=== PATIENT | female | born 1950 | race Caucasian/White ===

== ENCOUNTER 2016-10-12 10:42 | Outpatient (CLI) | payer BC | END 2016-10-12 10:43 | disposition home or self-care (01) | DX: Z00.00 Encounter for general adult medical examination without abnormal findings (principal); E55.9 Vitamin D deficiency, unspecified; E78.5 Hyperlipidemia, unspecified ==

== ENCOUNTER 2017-05-29 14:31 | Outpatient (CLI) | payer BC ==
[2017-05-29 18:49] LABS: ALBUMIN 4.2 g/dL (3.2-5.5); ALBUMIN/GLOBULIN RATIO 1.2 (1.0-2.2); BILIRUBIN,TOTAL 0.9 mg/dL (0.2-1.0); CALCIUM 9.4 mg/dL (8.5-10.3); TOTAL PROTEIN 7.6 g/dL (6.7-8.2)
== END 2017-05-29 14:32 | disposition home or self-care (01) ==
LOC: LAB.F 14:31
PROVIDERS: ATTEND Nurse Practitioner Family
DX: Z79.899 Other long term (current) drug therapy (principal)
CPT/HCPCS: 36415; 80053

== ENCOUNTER 2018-03-20 12:08 | Outpatient (CLI) | payer BC ==
--- NOTE | 2018-03-21 10:22 | XRAY Report ---
Reason: INCREASING PAIN Procedure Date: 03/20/2018 Accession Number: [id number] / [id number] Procedure: XR - Hip w/Pelvis 2-3V RT CPT Code: FULL RESULT: EXAM: RIGHT HIP AND PELVIS RADIOGRAPHY EXAM DATE: 03/20/2018 12:25 PM. HISTORY: INCREASING PAIN. COMPARISONS: None. TECHNIQUE: 1 view of the pelvis and 1 view of the hip. FINDINGS: Bones: Normal. No fracture or bone lesion. Joints: The bilateral hip, pubis symphysis, and sacroiliac joints are preserved. Prominent degenerative changes in lower lumbar spine. Soft Tissues: Unremarkable. IMPRESSION: Negative hips. Prominent lower lumbar degenerative changes. RADIA
== END 2018-03-20 12:09 | disposition home or self-care (01) ==
LOC: DI 12:08
PROVIDERS: ATTEND Nurse Practitioner Family
DX: M25.551 Pain in right hip (principal)

== ENCOUNTER 2018-04-03 14:15 | Outpatient (CLI) | payer BC ==
[2018-04-03 18:07] LABS: T4 (THYROXINE) 8.2 ug/dL (6.09-12.23)
[2018-04-03 18:12] LABS: THYROID STIMULATING HORMONE 2.14 uIU/mL (0.34-5.60)
[2018-04-03 18:14] LABS: FREE T4 (FREE THYROXINE) 0.85 ng/dL (0.58-1.64)
== END 2018-04-03 14:16 | disposition home or self-care (01) ==
LOC: LAB.F 14:15
PROVIDERS: ATTEND Nurse Practitioner Family
DX: N95.1 Menopausal and female climacteric states (principal); K59.00 Constipation, unspecified
CPT/HCPCS: 36415; 82306; 83090; 84436; 84439; 84443; 84481; 86141

== ENCOUNTER 2019-01-01 11:04 | Outpatient (CLI) | payer BC ==
[2019-01-01 17:14] LABS: BASOPHILS # (AUTO) 0.1 10^3/uL (0.0-0.1); BASOPHILS % (AUTO) 0.7 %; EOSINOPHILS # (AUTO) 0.2 10^3/uL (0.0-0.7); EOSINOPHILS % (AUTO) 2.3 %; HGB - HEMOGLOBIN 13.7 g/dL (12.0-16.0); LYMPHOCYTES # (AUTO) 2.3 10^3/uL (1.5-3.5); LYMPHOCYTES % (AUTO) 27.7 %; MEAN CORPUSCULAR HEMOGLOBIN 28.5 pg (27.0-31.0); MEAN CORPUSCULAR HGB CONC 31.4 g/dL (32.0-36.0); MEAN CORPUSCULAR VOLUME 90.6 fL (81.0-99.0); MEAN PLATELET VOLUME 10.3 fL (7.9-10.8); MONOCYTES # (AUTO) 0.6 10^3/uL (0.0-1.0); MONOCYTES % (AUTO) 6.7 %; NEUTROPHILS # (AUTO) 5.2 10^3/uL (1.5-6.6); NEUTROPHILS % (AUTO) 62.2 %; PLT - PLATELET COUNT 273 10^3/uL (130-450); RED BLOOD COUNT 4.81 10^6/uL (4.20-5.40); WHITE BLOOD COUNT 8.4 x10^3/uL (4.8-10.8)
[2019-01-01 17:28] LABS: ALBUMIN 4.3 g/dL (3.2-5.5); ALBUMIN/GLOBULIN RATIO 1.4 (1.0-2.2); ALKALINE PHOSPHATASE 61 IU/L (42-121); ALT ALANINE AMINOTRANSFERASE 16 IU/L (10-60); AST ASPARTATE AMINOTRANSFERASE 17 IU/L (10-42); BILIRUBIN,TOTAL 0.8 mg/dL (0.2-1.0); BUN - BLOOD UREA NITROGEN 18 mg/dL (6-20); CALCIUM 9.6 mg/dL (8.5-10.3); CARBON DIOXIDE - CO2 23 mmol/L (21-32); CHLORIDE 104 mmol/L (101-111); CHOL/HDL RATIO 3.3 (<4.4); CHOLESTEROL 169 mg/dL; GFR - MDRD 55 (>89); GLUCOSE 89 mg/dL (70-100); HDL CHOLESTEROL 51 mg/dL; LDL CHOLESTEROL,CALCULATED 85 mg/dL; LDL/HDL RATIO 1.7 (<4.4); SODIUM 137 mmol/L (135-145); TOTAL PROTEIN 7.4 g/dL (6.7-8.2); VLDL CHOLESTEROL 33 mg/dL
== END 2019-01-01 11:05 | disposition home or self-care (01) ==
LOC: LAB.S 11:04
PROVIDERS: ATTEND Nurse Practitioner Family
DX: Z00.00 Encounter for general adult medical examination without abnormal findings (principal); E55.9 Vitamin D deficiency, unspecified; E78.5 Hyperlipidemia, unspecified
CPT/HCPCS: 36415; 80053; 80061; 82306; 83721; 85025

== ENCOUNTER 2019-02-19 14:11 | Outpatient (CLI) | payer BC ==
[2019-02-19 17:48] LABS: ALBUMIN/GLOBULIN RATIO 1.3 (1.0-2.2); BILIRUBIN,TOTAL 0.7 mg/dL (0.2-1.0); CALCIUM 9.3 mg/dL (8.5-10.3); TOTAL PROTEIN 7.2 g/dL (6.7-8.2)
== END 2019-02-19 14:12 | disposition home or self-care (01) ==
LOC: LAB.S 14:11
PROVIDERS: ATTEND Nurse Practitioner Family
DX: Z79.899 Other long term (current) drug therapy (principal)
CPT/HCPCS: 36415; 80053

== ENCOUNTER 2019-06-05 12:14 | Outpatient (CLI) | payer BC ==
[2019-06-05 12:47] LABS: BASOPHILS # (AUTO) 0.1 10^3/uL (0.0-0.1); BASOPHILS % (AUTO) 0.6 %; EOSINOPHILS # (AUTO) 0.2 10^3/uL (0.0-0.7); EOSINOPHILS % (AUTO) 1.8 %; LYMPHOCYTES # (AUTO) 2.1 10^3/uL (1.5-3.5); LYMPHOCYTES % (AUTO) 25.7 %; MEAN CORPUSCULAR HEMOGLOBIN 27.9 pg (27.0-31.0); MEAN CORPUSCULAR HGB CONC 31.7 g/dL (32.0-36.0); MEAN PLATELET VOLUME 9.4 fL (7.9-10.8); MONOCYTES # (AUTO) 0.5 10^3/uL (0.0-1.0); MONOCYTES % (AUTO) 6.1 %; NEUTROPHILS # (AUTO) 5.5 10^3/uL (1.5-6.6); NEUTROPHILS % (AUTO) 65.6 %; PLT - PLATELET COUNT 258 10^3/uL (130-450); RED BLOOD COUNT 5.02 10^6/uL (4.20-5.40); RED CELL DISTRIBUTION WIDTH 13.5 % (12.0-15.0); WHITE BLOOD COUNT 8.3 x10^3/uL (4.8-10.8)
[2019-06-05 13:08] LABS: ALBUMIN 4.1 g/dL (3.2-5.5); ALBUMIN/GLOBULIN RATIO 1.2 (1.0-2.2); BILIRUBIN,TOTAL 0.8 mg/dL (0.2-1.0); CALCIUM 9.6 mg/dL (8.5-10.3); TOTAL PROTEIN 7.5 g/dL (6.7-8.2)
== END 2019-06-05 12:15 | disposition home or self-care (01) ==
LOC: LAB 12:14
PROVIDERS: ATTEND Nurse Practitioner Family
DX: Z00.00 Encounter for general adult medical examination without abnormal findings (principal); Z79.899 Other long term (current) drug therapy; E55.9 Vitamin D deficiency, unspecified; E78.5 Hyperlipidemia, unspecified
CPT/HCPCS: 36415; 80053; 85025

== ENCOUNTER 2019-06-05 12:49 | Outpatient (CLI) | payer BC ==
--- NOTE | 2019-06-06 00:51 | XRAY Report ---
Reason: SHORTNESS OF BREATH Procedure Date: 06/05/2019 Accession Number: [id number] / [id number] Procedure: XR - Chest 2 View X-Ray CPT Code: 59813 Final Report FULL RESULT: EXAM: CHEST RADIOGRAPHY EXAM DATE: 06/05/2019 12:57 PM. CLINICAL HISTORY: SHORTNESS OF BREATH. COMPARISON: XR CHEST PA AND LAT 06/25/2012 7:27 AM. TECHNIQUE: 2 views. FINDINGS: Lungs/Pleura: No infiltrates. No pleural effusions or pneumothorax. Mediastinum: Heart size within normal limits. No pulmonary vascular congestion. Osseous structures: No significant focal osseous lesions. Multilevel degenerative disk disease of the thoracic spine. IMPRESSION: No acute cardiopulmonary findings radiographically. RADIA
== END 2019-06-05 12:50 | disposition home or self-care (01) ==
LOC: DI 12:49
PROVIDERS: ATTEND Nurse Practitioner Family
DX: R06.02 Shortness of breath (principal); R06.00 Dyspnea, unspecified; R00.1 Bradycardia, unspecified; Z00.00 Encounter for general adult medical examination without abnormal findings; E55.9 Vitamin D deficiency, unspecified; E78.5 Hyperlipidemia, unspecified
CPT/HCPCS: 36415; 71046; 80053; 85025; 93005

== ENCOUNTER 2019-07-16 15:22 | Outpatient (CLI) | payer BC ==
--- NOTE | 2019-07-16 17:55 | CARDIAC PROCEDURE NOTE ---
DATE OF SERVICE: 07/16/2019 Physician: Alicja Quiñones MD, [facility] INDICATION: Hypertension. CARDIAC RISK FACTORS: Hypertension, elevated cholesterol, postmenopausal status. DESCRIPTION OF PROCEDURE: After signing informed consent, the patient underwent a Christiano-protocol treadmill stress test. There was no imaging study ordered with this test. RESTING HEART RATE: 63. PEAK HEART RATE: 113 (74% predicted maximum heart rate for age). The patient exercised for 4 minutes and 14 seconds on a Christiano-protocol treadmill stress test. She developed shortness of breath easily and requested the treadmill be stopped before achieving target heart rate. She had no chest pain. She reported her perceived exertion on a Flory scale at 18/20 at peak. Oxygen saturation dropped from 98% at rest to 90% at peak exercise, on room air. RESTING BLOOD PRESSURE: 140/80. PEAK BLOOD PRESSURE: 141/66. The blood pressure response was abnormal. In immediate recovery, there was an expected drop in blood pressure to 133/69, but then a steady increase during recovery to as high as 168/84 and 175/86 by 9 minutes of recovery before decreasing to 171 systolic. RESTING EKG: Normal sinus rhythm, inverted T wave in V2 and flat T waves in leads aVL, and V3 through V5. EKG AT PEAK: Pseudonormalization of T waves in leads aVL, and V2 through V5. After 9 minutes of recovery, the T waves returned back to their baseline. SUMMARY 1. Abnormal resting EKG. 2. Pseudonormalization of T waves develops, this is a positive criteria for ischemia by EKG during exercise stress testing. 3. Abnormal blood pressure response to exercise and in recovery. 4. Poor exercise tolerance. 5. Borderline abnormal drop in oxygen saturation at peak. 6. No imaging was ordered with this test. 7. Recommend recheck using either nuclear or Echo imaging and consider pharmaceutical stress, since she could not achieve target heart rate because of poor exercise tolerance or because of using Verapamil. 8. This patient's cardiac risk based on all the above: High. cc: GISELA Castellon TD: 07/16/2019 17:42 SAMIR
== END 2019-07-16 15:23 | disposition home or self-care (01) ==
LOC: DI 15:22
PROVIDERS: ATTEND Nurse Practitioner Family
DX: I25.9 Chronic ischemic heart disease, unspecified (principal); I10 Essential (primary) hypertension; R94.31 Abnormal electrocardiogram [ECG] [EKG]; Z78.0 Asymptomatic menopausal state
CPT/HCPCS: 93017

== ENCOUNTER 2020-01-08 11:12 | Emergency (ER) | payer BC ==
[2020-01-08] MEDS ORDERED: HYDROcod/ACETAM 5/325 MG TABLET PO STA (12:07)
--- NOTE | 2020-01-08 12:07 | ED Physician Documentation ---
History of Present Illness - Stated complaint Stated Complaint: RT SHOULDER INJ - Chief complaint Chief Complaint: Ext Problem - History obtained from History obtained from: Patient - History of Present Illness Timing: Prior to arrival - Additonal information Additional information: 69-year-old female cream sent to the emergency department for evaluation of righ t shoulder pain. She reports that she was walking in her kitchen and her feet got tangled up under her and she fell onto her right side with her right arm outstretched. She had immediate pain in the right shoulder and has been unable to move it since. She denies hitting her head any back pain neck pain or loss of consciousness. Past medical history most significant for hypertension. She takes Spironolactone as well as verapamil Review of Systems Constitutional: denies: Fever Eyes: denies: Loss of vision Throat: denies: Oral lesions / sores Cardiac: denies: Chest pain / pressure, Palpitations Respiratory: denies: Dyspnea, Cough GI: denies: Abdominal Pain, Abdominal Swelling, Nausea : denies: Dysuria, Frequency Skin: denies: Rash, Lesions Musculoskeletal: reports: Neck pain, Joint pain Neurologic: denies: Generalized weakness, Focal weakness, Numbness, Difficulty speaking, Near syncope PD PAST MEDICAL HISTORY - Present Medications Home Medications: Ambulatory Orders Medication Instructions Recorded Confirmed Hydrocodone/Acetaminophen 1 each PO BID PRN #20 tablet 01/08/20 [Hydrocodone-Acetamin 5-325 mg] Ibuprofen [Motrin] 600 mg PO Q6H PRN #30 tab 01/08/20 - Allergies Allergies/Adverse Reactions: Allergies Allergy/AdvReac Type Severity Reaction Status Date / Time No Known Drug Allergies Allergy Verified 01/08/20 11:21 PD ED PE EXPANDED - General General: Alert, In Pain. No: No acute distress - Neck Neck: Supple w/out meningeal sx. No: Adenopathy - Cardiac Cardiac: Regular Rate, Radial strong equal, Femoral strong equal, Cap refill < 2 sec - Respiratory Respiratory: Clear to ausultation anita. No: Distress, Labored - Extremities Extremities: Right shoulder (tenderness at humeral heal; Pt will not attempt to range the shoulder in any planes. normal distal grop and strength of right hand.) - Neuro Neuro: Alert and Oriented X 3, CNII-XII intact, Normal speech - GCS Motor: Obeys Commands Verbal: Oriented Results - Vitals Vitals: Vital Signs - 24 hr 01/08/20 11:21 Temperature 36.4 C L Heart Rate 61 Respiratory 16 Rate Blood Pressure 174/78 H O2 Saturation 98 Oxygen O2 Source Room air - Rads (name of study) right shoulder Radiology: Final report received (Acute comminuted and slightly impacted right proximal humeral head and neck fracture with displaced greater tuberosity fragment. No dislocation) PD MEDICAL DECISION MAKING - ED course Complexity details: reviewed results, d/w patient, d/w family ED course: 69-year-old female presents the emergency department for evaluation of right arm and shoulder pain following a fall this morning at home. She is unable to move her right shoulder. - X-ray shows comminuted and slightly impacted right humeral head and neck fracture with a displaced greater tuberosity fragment. There is no dislocation. These findings were discussed with the patient and her at bedside. At this time she will be placed in a sling. She will be prescribed ibuprofen and Vicodin as needed for pain. We will have her follow-up with [facility]. - Emergent return precautions discussed. Patient also notified about cautious use of opiates and avoidance of driving and high risk of falls. Also notified that it may cause constipation. Departure - Departure Disposition: 01 Home, Self Care Clinical Impression: Humerus head fracture Qualifiers: Encounter type: initial encounter Fracture type: closed Laterality: right Qualified Code(s): S42.291A - Other displaced fracture of upper end of right humerus, initial encounter for closed fracture Condition: Stable Record reviewed to determine appropriate education?: Yes Instructions: ED Fx Upper Ext Follow-Up: [facility] [Provider Group] - Within 1 week Barney Gardner ARNP [Primary Care Provider] - Within 1 week Prescriptions: Hydrocodone/Acetaminophen [Hydrocodone-Acetamin 5-325 mg] 1 each PO BID PRN #20 tablet PRN Reason: Pain Ibuprofen [Motrin] 600 mg PO Q6H PRN #30 tab PRN Reason: Pain Comments: The x-ray shows that you have a humeral head and neck fracture. There is no dislocation. Unfortunately this fracture will simply heal over time by continuing to wear the sling. I would like you to schedule with orthopedics for follow-up within the next week. I recommend icing your shoulder for 10 minutes 3-4 times a day for the next 3 to 4 days. Take ibuprofen with food for pain and use the hydrocodone for severe pain only. Please be careful it can make you drowsy and at higher risk for falls. Hydrocodone can also cause constipation so make sure you are drinking plenty of water. This fracture typically takes 6 to 8 weeks to heal and then physical therapy will help you regain use of the arm and shoulder. I wish you luck in this journey
--- NOTE | 2020-01-08 12:34 | XRAY Report ---
PROCEDURE: Shoulder 3 View RT INDICATIONS: shoulder pain TECHNIQUE: 4 views of the shoulder were acquired. COMPARISON: None. FINDINGS: Bones: Comminuted and displaced fracture involving right humeral head and neck is seen with superior and laterally displaced greater tuberosity fragment. No dislocation. No suspicious bony lesions. Vis ualized ribs appear intact. Soft tissues: No suspicious soft tissue calcifications. IMPRESSION: Acute comminuted and slightly impacted right proximal humeral head and neck fracture wit h displaced greater tuberosity fragment. No dislocation. Reviewed by: Kevin Menezes MD on 01/08/2020 11:33 AM AMIE Approved by: Kevin Menezes MD on 01/08/2020 11:33 AM AKHARLEY Station ID: [id number]
[2020-01-08 12:48] VITALS: BP 173/92
== END 2020-01-08 13:10 | disposition home or self-care (01) ==
LOC: ED 11:12
DX: S42.291A Other displaced fracture of upper end of right humerus, initial encounter for closed fracture (principal); W01.0XXA Fall on same level from slipping, tripping and stumbling without subsequent striking against object, initial encounter; Y93.01 Activity, walking, marching and hiking; Y92.000 Kitchen of unspecified non-institutional (private) residence as the place of occurrence of the external cause
CPT/HCPCS: 73030; 99283; 99284; A9270

== ENCOUNTER 2020-01-23 13:03 | Outpatient (CLI) | payer BC ==
--- NOTE | 2020-01-23 14:09 | CT Report ---
PROCEDURE: UPPER EXTREMITY WO - RT INDICATIONS: RT HUMERUS FX TECHNIQUE: Noncontrast 1 mm axial sections acquired of the right shoulder, with coronal and sagittal reformats. COMPARISON: Right shoulder radiographs dated 01/08/2020 FINDINGS: Image quality: Excellent. Bones: There is a comminuted, displaced fracture of the humeral head and neck. The radial shaft comp onent is mildly impacted. The greater tuberosity component demonstrates superior and posterior displa cement measuring up to 5 mm superiorly and 4 mm posteriorly. A mildly comminuted lesser tuberosity fr acture component is seen with minimal displacement. No definite step-off is seen at the humeral head articular surface. The glenoid is intact. Mild spurring of the glenoid rim is noted. The rest of the scapula is intact. Mild degenerative changes are seen in the acromioclavicular joint. The remainder of the included osse ous structures are intact. Soft tissues: A large glenohumeral joint effusion is present. The articular cartilages, ligaments, a nd tendons are not well evaluated with CT. The included portion of the right lung is clear. IMPRESSION: Comminuted, impacted fracture of the humeral head and neck as described in detail above. Large glenohumeral effusion. Reviewed by: Yoseph Paniagua MD on 01/23/2020 2:08 PM PDT Approved by: Yoseph Paniagua MD on 01/23/2020 2:08 PM PDT Station ID: [id number]
== END 2020-01-23 13:04 | disposition home or self-care (01) ==
LOC: DI 13:03
PROVIDERS: ATTEND Physician Assistant
DX: S42.291D Other displaced fracture of upper end of right humerus, subsequent encounter for fracture with routine healing (principal)

== ENCOUNTER 2020-02-13 12:43 | Outpatient (CLI) | payer BC ==
--- NOTE | 2020-02-13 15:45 | DEXA Report ---
PROCEDURE: Dexa Spine and/or Hip INDICATIONS: AGE-REL OSTEOPOR W/CURRENT PATH FRACTURE, VERTEBRA TECHNIQUE: Dual energy x-ray absorptiometry (DXA) was performed on a [employer] System. Regions measur ed are the AP Spine, femoral neck, and if needed forearm. COMPARISON: None. FINDINGS: Lumbar Spine: Bone Mineral Density 1.171 g/cm/cm,T score -0.1, normal Left Hip: Bone Mineral Density 0.853 g/cm/cm,T score -1.2, osteopenia Left Femoral Neck: Bone Mineral Density 0.815 g/cm/cm, T score -1.6, osteopenia (T score greater or equal to -1.0: NORMAL) (T score from -1.1 to -2.4: OSTEOPENIA) (T score less than or equal to -2.5 to: OSTEOPOROSIS) Impression: Normal bone mineral density of the lumbosacral spine, mild osteopenia at the left hip and left femoral neck. Patients with diagnosis of osteoporosis or osteopenia should have regular bone mineral density assess ment. For those eligible for Medicare, routine testing is allowed once every 2 years. Testing frequ ency can be increased for patients who have rapidly progressing disease or for those who are receivin g medical therapy to restore bone mass. Reviewed by: Maninder Quintero MD on 02/13/2020 3:44 PM PDT Approved by: Maninder Quintero MD on 02/13/2020 3:44 PM PDT Station ID: [id number]
== END 2020-02-13 12:44 | disposition home or self-care (01) ==
LOC: DI 12:43
PROVIDERS: ATTEND Nurse Practitioner Family
DX: M80.08XA Age-related osteoporosis with current pathological fracture, vertebra(e), initial encounter for fracture (principal); M85.852 Other specified disorders of bone density and structure, left thigh
CPT/HCPCS: 77080

== ENCOUNTER 2020-02-27 10:30 | Outpatient (CLI) | payer BC ==
--- NOTE | 2020-02-27 14:17 | XRAY Report ---
PROCEDURE: Shoulder 3 View RT INDICATIONS: RIGHT HUMERUS FRACTURE TECHNIQUE: 4 views of the shoulder were acquired. COMPARISON: None. FINDINGS: Bones: No dislocations. No suspicious bony lesions. Visualized ribs appear intact. There is a co mminuted fracture involving the humeral head/neck at the right proximal humerus, with overlying degen erative change involving the AC joint and no definite clavicular fracture. Soft tissues: No suspicious soft tissue calcifications. IMPRESSION: Mildly impacted comminuted proximal right humeral head/neck junction fracture, acute iqra earance. Reviewed by: Maninder Quintero MD on 02/27/2020 2:16 PM PDT Approved by: Maninder Quintero MD on 02/27/2020 2:16 PM PDT Station ID: [id number]
== END 2020-02-27 10:31 | disposition home or self-care (01) ==
LOC: DI.WCP 10:30
PROVIDERS: ATTEND Orthopaedic Surgery
DX: S42.251A Displaced fracture of greater tuberosity of right humerus, initial encounter for closed fracture (principal); M19.011 Primary osteoarthritis, right shoulder

== ENCOUNTER 2020-08-05 13:05 | Outpatient (CLI) | payer BC | END 2020-08-05 13:06 | disposition home or self-care (01) | LOC: RT 13:05 | PROVIDERS: ATTEND Nurse Practitioner Family | DX: R06.02 Shortness of breath (principal) | CPT/HCPCS: 93005 ==

== ENCOUNTER 2020-08-05 13:28 | Outpatient (CLI) | payer BC ==
--- NOTE | 2020-08-05 14:02 | XRAY Report ---
PROCEDURE: Chest 2 View X-Ray INDICATIONS: SHORTNESS OF BREATH TECHNIQUE: 2 view(s) of the chest. COMPARISON: Chest x-ray dated 06/05/2019 FINDINGS: Surgical changes and devices: None. Lungs and pleura: No pleural effusions or pneumothorax. Lungs are clear. Mediastinum: Mediastinal contours are normal. Heart size is normal. Bones and chest wall: No suspicious bony abnormalities. Soft tissues appear unremarkable. IMPRESSION: No acute process. Reviewed by: Cheri Larios MD on 08/05/2020 2:01 PM PST Approved by: Cheri Larios MD on 08/05/2020 2:01 PM PST Station ID: [id number]
== END 2020-08-05 13:29 | disposition home or self-care (01) ==
LOC: DI 13:28
PROVIDERS: ATTEND Nurse Practitioner Family
DX: R06.02 Shortness of breath (principal)
CPT/HCPCS: 93005

== ENCOUNTER 2021-11-25 10:28 | Outpatient (CLI) | payer BC ==
[2021-11-25 15:33] LABS: BASOPHILS % (AUTO) 0.5 %; EOSINOPHILS # (AUTO) 0.4 10^3/uL (0.0-0.7); EOSINOPHILS % (AUTO) 4.2 %; HCT - HEMATOCRIT 46.3 % (37.0-47.0); LYMPHOCYTES # (AUTO) 2.6 10^3/uL (1.5-3.5); LYMPHOCYTES % (AUTO) 30.6 %; MEAN CORPUSCULAR HEMOGLOBIN 29.1 pg (27.0-31.0); MEAN CORPUSCULAR HGB CONC 32.4 g/dL (32.0-36.0); MEAN CORPUSCULAR VOLUME 89.7 fL (81.0-99.0); MEAN PLATELET VOLUME 10.3 fL (7.9-10.8); MONOCYTES # (AUTO) 0.5 10^3/uL (0.0-1.0); MONOCYTES % (AUTO) 6.1 %; NEUTROPHILS # (AUTO) 4.9 10^3/uL (1.5-6.6); NEUTROPHILS % (AUTO) 58.4 %; PLT - PLATELET COUNT 243 10^3/uL (130-450); RED BLOOD COUNT 5.16 10^6/uL (4.20-5.40); RED CELL DISTRIBUTION WIDTH 13.4 % (12.0-15.0); WHITE BLOOD COUNT 8.4 x10^3/uL (4.8-10.8)
[2021-11-25 15:58] LABS: ALBUMIN 4.1 g/dL (3.2-5.5); ALBUMIN/GLOBULIN RATIO 1.6 (1.0-2.2); ALKALINE PHOSPHATASE 67 IU/L (42-121); ALT ALANINE AMINOTRANSFERASE 16 IU/L (10-60); AST ASPARTATE AMINOTRANSFERASE 18 IU/L (10-42); BILIRUBIN,TOTAL 0.7 mg/dL (0.2-1.0); BUN - BLOOD UREA NITROGEN 19 mg/dL (6-20); CALCIUM 9.8 mg/dL (8.5-10.3); CARBON DIOXIDE - CO2 27 mmol/L (21-32); CHLORIDE 105 mmol/L (101-111); CREATININE 1.2 mg/dL (0.4-1.0); GFR - MDRD 44 (>89); GLUCOSE 89 mg/dL (70-100); POTASSIUM 4.3 mmol/L (3.5-5.0); SODIUM 139 mmol/L (135-145); TOTAL PROTEIN 6.6 g/dL (6.7-8.2); TRIGLYCERIDES 93 mg/dL
[2021-11-25 15:59] LABS: CHOL/HDL RATIO 3.2 (<4.4); CHOLESTEROL 170 mg/dL; HDL CHOLESTEROL 53 mg/dL; LDL CHOLESTEROL,CALCULATED 98 mg/dL; LDL/HDL RATIO 1.8 (<4.4); VLDL CHOLESTEROL 19 mg/dL
[2021-11-25 16:56] LABS: FOLLICLE STIMULATING HORMONE 79.82 mIU/mL; LUTEINIZING HORMONE 30.06 mIU/mL
[2021-11-26 06:09] LABS: PROGESTERONE 0.4 ng/mL (.)
== END 2021-11-25 10:29 | disposition home or self-care (01) ==
LOC: LAB.S 10:28
PROVIDERS: ATTEND Nurse Practitioner Family
DX: E78.5 Hyperlipidemia, unspecified (principal); M85.80 Other specified disorders of bone density and structure, unspecified site; R23.2 Flushing
CPT/HCPCS: 36415; 80053; 80061; 82306; 82672; 83001; 83002; 83721; 84144; 85025; 85651

== ENCOUNTER 2022-01-26 12:47 | Outpatient (CLI) | payer BC ==
--- NOTE | 2022-01-26 14:19 | DEXA Report ---
PROCEDURE: Dexa Spine and/or Hip INDICATIONS: OSTEOPENIA TECHNIQUE: Dual energy x-ray absorptiometry (DXA) was performed on a [employer] System. Regions measur ed are the AP Spine, femoral neck, and if needed forearm. COMPARISON: 02/13/2020 FINDINGS: Lumbar Spine: Bone Mineral Density 1.213 g/cm/cm,T score 0.3, normal bone density Left Hip: Bone Mineral Density 0.790 g/cm/cm,T score -1.7, osteopenia Left Femoral Neck: Bone Mineral Density 0.747 g/cm/cm, T score -2.1, osteopenia (T score greater or equal to -1.0: NORMAL) (T score from -1.1 to -2.4: OSTEOPENIA) (T score less than or equal to -2.5 to: OSTEOPOROSIS) Impression: Osteopenia. Patient is at increased risk for fracture. Of note, bone mineral density of the left hip has decreased approximately 7.4%. Patients with diagnosis of osteoporosis or osteopenia should have regular bone mineral density assess ment. For those eligible for Medicare, routine testing is allowed once every 2 years. Testing frequ ency can be increased for patients who have rapidly progressing disease or for those who are receivin g medical therapy to restore bone mass. Reviewed by: Gary Stokes MD on 01/26/2022 2:18 PM PDT Approved by: Gary Stokes MD on 01/26/2022 2:18 PM PDT Station ID: [id number]
== END 2022-01-26 12:48 | disposition home or self-care (01) ==
LOC: DI 12:47
PROVIDERS: ATTEND Nurse Practitioner Family
DX: M85.89 Other specified disorders of bone density and structure, multiple sites (principal)

== ENCOUNTER 2023-07-04 10:32 | Outpatient (CLI) | payer BC ==
[2023-07-04 15:43] LABS: CALCIUM 9.8 mg/dL (8.5-10.3); CREATININE 1.2 mg/dL (0.6-1.3); POTASSIUM 4.5 mmol/L (3.5-4.5)
== END 2023-07-04 10:33 | disposition home or self-care (01) ==
LOC: LAB.S 10:32
DX: I10 Essential (primary) hypertension (principal); R00.2 Palpitations; R06.00 Dyspnea, unspecified
CPT/HCPCS: 36415; 80048

== ENCOUNTER 2023-09-12 02:23 | Emergency (ER) | payer BC ==
--- NOTE | 2023-09-12 03:08 | ED Physician Documentation ---
History of Present Illness - Stated complaint Stated Complaint: HIGH BP - Chief complaint Chief Complaint: General - History obtained from History obtained from: Patient - Additonal information Additional information: HPI from patient. Patient presents due to high blood pressure readings at home. Patient says she is being weaned off of her blood pressure medication over the past several months. Blood pressure medication she has been taking the spironolactone. She is being weaned from the spironolactone due to occasional hypotensive readings. She says that, at this point, she is taking spironolactone on a as needed basis with specific parameters having been given by her prescribing physician. Patient says she measures her blood pressure on a daily basis, often 2 or more times per day. She says that yesterday her blood pressure readings were 170s over 100s. Patient says that she was feeling "off balance", and describes mild generalized weakness and "heart was pounding" palpitations when the blood pressure readings were high. Patient took an extra dose of spironolactone approximately 90 minutes [employer]. Of note, the patient says she had blood pressure readings 80s over 40s just 3 days ago with more overt symptoms (patient describes feeling significant generalized weakness with those readings). Patient denies chest pain, shortness of breath, vision changes, headache. Denies numbness and denies focal weakness. Review of Systems Eyes: reports: Reviewed and negative Cardiac: reports: Palpitations (resolved), Pedal edema (mild bilateral (not new)). denies: Chest pain / pressure Respiratory: denies: Dyspnea GI: denies: Abdominal Pain PD PAST MEDICAL HISTORY - Past Medical History Past Medical History: Yes Cardiovascular: Hypertension - Present Medications Home Medications: Ambulatory Orders Medication Instructions Recorded Confirmed Spironolactone [Aldactone] 12.5 mg PO UD 09/12/23 09/12/23 - Allergies Allergies/Adverse Reactions: Allergies Allergy/AdvReac Type Severity Reaction Status Date / Time No Known Drug Allergies Allergy Verified 09/12/23 02:41 - Social History Does the pt smoke?: No Smoking Status: Never smoker Does the pt drink ETOH?: No Does the pt have substance abuse?: No PD ED PE NORMAL - Vitals Vital signs reviewed: Yes - General General: Alert and oriented X 3, No acute distress, Well developed/nourished - Cardiac Cardiac: RRR, No murmur - Respiratory Respiratory: No respiratory distress, Clear bilaterally - Neuro Neuro: Alert and oriented X 3, column precaster 2-12 intact, No motor deficit, No sensory deficit, Normal speech Eye Opening: Spontaneous Motor: Obeys Commands Verbal: Oriented GCS Score: 15 PD ED PE EXPANDED - Extremities Extremities: Pedal edema bilateral (trace BLE) Results - Vitals Vitals: Vital Signs - 24 hr 09/12/23 09/12/23 09/12/23 02:25 02:40 04:35 Temperature 36.1 C L Heart Rate 85 66 62 Respiratory 16 18 18 Rate Blood Pressure 182/83 H 159/89 H 168/75 H O2 Saturation 97 98 96 09/12/23 05:03 Temperature Heart Rate 80 Respiratory 16 Rate Blood Pressure 157/79 H O2 Saturation 95 Oxygen O2 Source Room air - EKG (time done) No standard instances EKG releavant findings:: EKG personally interpreted by author of this note. Relevant findings are: Rate: Rate (enter#) (65) Rhythm: NSR [place]: LAD Intervals: Prolonged [place] QRS: LVH Ischemia: Normal ST segments, T wave inversion (V2, V3) - Labs Labs: Laboratory Tests 09/12/23 09/12/23 04:04 04:04 WBC 13.3 H RBC 4.92 Hgb 14.1 Hct 43.9 MCV 89.2 MCH 28.7 MCHC 32.1 RDW 13.3 Plt Count 220 MPV 9.6 Neut # (Auto) 10.6 H Lymph # (Auto) 1.8 [place] # (Auto) 0.7 Eos # (Auto) 0.1 Baso # (Auto) 0.0 Absolute Nucleated RBC 0.00 Nucleated RBC % 0.0 Sodium 138 Potassium 3.9 Chloride 108 Carbon Dioxide 24 Anion Gap 6.0 BUN 18 Creatinine 1.0 Estimated GFR (MDRD) 55 L Glucose 107 H Calcium 10.5 H PD Medical Decision Making - ED course Complexity details: reviewed results, re-evaluated patient, considered differential, d/w patient ED course: Patient presents with a chief complaint of high blood pressure readings, questionable whether her symptoms of weakness, palpitations, and feeling "off balance" were related to these readings or if she was experiencing asymptomatic hypertension. Because the relation between symptoms and BP readings is not apparent, EKG and basic blood tests are undertaken. There are no concerning findings on the EKG and no concerning nor diagnostic findings on blood tests. Her blood pressures were only mildly elevated by the time of my H+P (159/89), possibly due to her taking the spirinolactone [employer]. Considering this, along with her report that her blood pressure readings were in hypotensive range just a few days ago, I will not be making any adjustments in her blood pressure medication regimen/recommendation. I emphasized to the patient importance of following up with her primary care provider for reevaluation of her blood pressure readings and reconsideration of her medication regimen. Return precautions were discussed. Departure - Departure Disposition: 01 Home, Self Care Clinical Impression: Hypertension Condition: Good Instructions: ED Hypertension Conf Out Of Control Follow-Up: AALIYAH TORRES ND [Primary Care Provider] - Comments: Your blood pressures were mildly elevated tonight in the emergency department, but not to an extent that would necessitate emergent intervention. As we discussed, you should contact your primary care provider (whichever provider is prescribing your blood pressure medications) to arrange follow-up/reevaluation so that your blood pressure issues can be reevaluated and further managed. There were no concerning findings on diana's blood tests. Your calcium was slightly above normal range (10.5), as was your white blood cell count (13.3). Neither of these was to a concerning extent and are very likely incidental findings. Forms: PCP List Discharge Date/Time: 09/12/23 05:04
[2023-09-12 04:08] LABS: BASOPHILS % (AUTO) 0.3 %; EOSINOPHILS # (AUTO) 0.1 10^3/uL (0.0-0.7); EOSINOPHILS % (AUTO) 0.5 %; HCT - HEMATOCRIT 43.9 % (37.0-47.0); HGB - HEMOGLOBIN 14.1 g/dL (12.0-16.0); LYMPHOCYTES # (AUTO) 1.8 10^3/uL (1.5-3.5); LYMPHOCYTES % (AUTO) 13.8 %; MEAN CORPUSCULAR HEMOGLOBIN 28.7 pg (27.0-31.0); MEAN CORPUSCULAR HGB CONC 32.1 g/dL (32.0-36.0); MEAN CORPUSCULAR VOLUME 89.2 fL (81.0-99.0); MEAN PLATELET VOLUME 9.6 fL (7.9-10.8); MONOCYTES # (AUTO) 0.7 10^3/uL (0.0-1.0); MONOCYTES % (AUTO) 5.5 %; NEUTROPHILS # (AUTO) 10.6 10^3/uL (1.5-6.6); NEUTROPHILS % (AUTO) 79.5 %; PLT - PLATELET COUNT 220 10^3/uL (130-450); RED BLOOD COUNT 4.92 10^6/uL (4.20-5.40); RED CELL DISTRIBUTION WIDTH 13.3 % (12.0-15.0); WHITE BLOOD COUNT 13.3 x10^3/uL (4.8-10.8)
[2023-09-12 04:24] LABS: CALCIUM 10.5 mg/dL (8.5-10.3); POTASSIUM 3.9 mmol/L (3.5-4.5)
[2023-09-12 05:11] VITALS: BP 157/79; O2SAT 95
== END 2023-09-12 05:04 | disposition home or self-care (01) ==
LOC: ED 02:23
DX: I10 Essential (primary) hypertension (principal)
CPT/HCPCS: 36415; 80048; 85025; 93005; 99283; 99284

== ENCOUNTER 2024-02-04 13:21 | Outpatient (CLI) | payer BC | END 2024-02-04 13:22 | disposition home or self-care (01) | LOC: RT 13:21 | PROVIDERS: ATTEND Naturopath | DX: I49.9 Cardiac arrhythmia, unspecified (principal) | CPT/HCPCS: 93005 ==